=== PATIENT | male | born 1995 | race Caucasian/White ===

== ENCOUNTER 2017-08-06 17:18 | Emergency (ER) | payer OTHER ==
[~2017-08-06] VITALS: Ht 172.7 cm; Wt 68.0 kg
[2017-08-06 17:21] VITALS: BP 120/82; PULSE 63; RESP 22; TEMP 98.7; O2SAT 98
[2017-08-06] MEDS ORDERED: TETANUS/DIPHTHERIA TOXOID ADULT 0.5 ML VIAL IM ONE (18:30)
[2017-08-06] MEDS ORDERED: LIDOCAINE 1%/EPINEPHrine 1:100,000 SOLN 20 ML VIAL INFIL ONE (18:30)
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
== END 2017-08-06 19:37 | disposition home or self-care (01) ==
LOC: NEPK 17:18
DX: S01.81XA Laceration without foreign body of other part of head, initial encounter (principal); S01.511A Laceration without foreign body of lip, initial encounter; Z23 Encounter for immunization; W05.1XXA Fall from non-moving nonmotorized scooter, initial encounter
CPT/HCPCS: 12013; 90471; 90714